=== PATIENT | male | born 1965 | race Caucasian/White ===

== ENCOUNTER 2019-06-28 05:24 | Day surgery (SDC) | payer OTHER ==
[~2019-06-28] VITALS: Ht 180.3 cm; Wt 112.6 kg
[2019-06-28 06:13] VITALS: BP 118/83
[2019-06-28] MEDS ORDERED: GABA300C10 PO (06:18)
[2019-06-28 06:24] VITALS: BP 118/83
[2019-06-28] MEDS ORDERED: LIDOCAINE/PF 0.5% ,50ML ONE (06:49)
[2019-06-28] MEDS ORDERED: BUPIVACAINE/PF 0.25% ONE (06:49)
[2019-06-28] MEDS ORDERED: LACTATED RINGERS 1,000 ML IV SCH (06:50)
[2019-06-28] MEDS ORDERED: VANCOMYCIN 1,000 MG ONE (06:50)
[2019-06-28] MEDS ORDERED: EPINEPHRINE 1 MG/ML, 1ML ONE (06:50)
[2019-06-28] MEDS ORDERED: THROMBIN 5,000 UNIT VIAL TP ONE (06:50)
[2019-06-28] MEDS ORDERED: MIDAZOLAM 1 MG/ML, 2ML ONE (07:29)
[2019-06-28] MEDS ORDERED: GABAPENTIN 300 MG CAPSULE PO ONE (07:30)
[2019-06-28] MEDS ORDERED: ACETAMINOPHEN 500 MG TABLET PO ONE (07:30)
[2019-06-28] MEDS ORDERED: FENTANYL PF 250 MCG/5ML ONE (07:31)
[2019-06-28] MEDS ORDERED: PHENYLEPHRINE 10 MG/ML ONE (07:40)
[2019-06-28] MEDS ORDERED: EPHEDRINE 50 MG/ML, 1ML ONE (07:40)
[2019-06-28] MEDS ORDERED: OXYcodone 5 MG/5 ML ORAL.SOL UDC PO PRN (08:30)
[2019-06-28] MEDS ORDERED: HYDROmorphone 2 MG/ML, 1ML IVPush PRN (08:30)
[2019-06-28] MEDS ORDERED: PROMETHAZINE 25 MG/ML, 1ML IV PRN (08:30)
[2019-06-28] MEDS ORDERED: DIAZEPAM 5 MG/ML, 2ML IVPush PRN (08:30)
[2019-06-28] MEDS ORDERED: ALBUTEROL/IPRATROPIUM 2.5MG/0.5MG, 3 ML NPPB PRN (08:30)
[2019-06-28] MEDS ORDERED: METOPROLOL 1 MG/ML, 5ML IV PRN (08:30)
[2019-06-28] MEDS ORDERED: MEPERIDINE/PF 25MG/ML,1ML IVPush PRN (08:30)
[2019-06-28] MEDS ORDERED: hydrALAzine 20 MG/ML, 1ML IV PRN (08:30)
[2019-06-28] MEDS ORDERED: DEXAMETHASONE 4 MG/ML, 1ML ONE (08:50)
[2019-06-28] MEDS ORDERED: ROCURONIUM 10MG/ML,5ML ONE (08:50)
[2019-06-28] MEDS ORDERED: GLYCOPYRROLATE 0.2MG/1ML, 5ML ONE (08:50)
[2019-06-28] MEDS ORDERED: PROPOFOL 10 MG/ML, 20ML ONE (08:50)
[2019-06-28] MEDS ORDERED: ONDANSETRON 2MG/ML, 2ML ONE (08:50)
[2019-06-28] MEDS ORDERED: CEFAZOLIN 1,000 MG ONE (08:50)
[2019-06-28] MEDS ORDERED: NEOSTIGMINE 1 MG/ML, 10ML ONE (08:50)
[2019-06-28] MEDS ORDERED: OXYcodone 5 MG/5 ML ORAL.SOL UDC ONE (09:27)
[2019-06-28] MEDS ORDERED: FENTANYL PF 100 MCG/2ML ONE (09:27)
[2019-06-28] MEDS: FENTANYL PF 100 MCG/2ML IV PRN ×2 (09:29→09:38)
[2019-06-28] MEDS ORDERED: DIAZEPAM 5 MG/ML, 2ML ONE (09:44)
== END 2019-06-28 11:55 | disposition home or self-care (01) ==
LOC: OR 05:24
PROVIDERS: ATTEND Orthopaedic Surgery Orthopaedic Surgery of the Spine
DX: M48.061 Spinal stenosis, lumbar region without neurogenic claudication (principal); M54.16 Radiculopathy, lumbar region; G47.33 Obstructive sleep apnea (adult) (pediatric); E66.9 Obesity, unspecified; Z79.899 Other long term (current) drug therapy; Z88.0 Allergy status to penicillin; Z98.890 Other specified postprocedural states
CPT/HCPCS: 63047; 72100; J0171; J0690; J1100; J2001; J2250; J2370; J2405; J2704; J2710; J3010; J3360; J3370; J3490; J7120